=== PATIENT | female | born 1990 | race Caucasian/White ===

== ENCOUNTER 2016-11-05 11:54 | Emergency (ER) | payer BC, OTHER ==
[~2016-11-05] VITALS: Ht 170.2 cm; Wt 58.1 kg
[~2016-11-05 11:54] MED LIST: AUGM875T PO; IBUP800T23 PO
[2016-11-05 12:03] VITALS: BP 122/75; PULSE 83; RESP 16; TEMP 97.8; O2SAT 100
--- NOTE | 2016-11-05 12:31 | PD ---
HPI Chief Complaint: Injury Time Seen by Provider: 12:24 Travel History International Travel<30 days: No Contact w/Intl Traveler<30days: No Traveled to known affect area: No History of Present Illness HPI 26-year-old female presents to the emergency room from work for evaluation of left knee pain. Patient states she was feeding a 60 pound dog when the dog struck her left knee causing it to bend backwards. Patient states it felt as though her leg gave out. She reports immediate pain localized to the left lateral knee. Pain is worse with walking and bending the knee. She has been able to walk on it. She took 600 mg ibuprofen and applied Biofreeze with moderate relief in symptoms. Denies paresthesias. No chronic medical conditions or daily medications. PFSH Past Medical History Medical History: Denies Significant Hx Diminished Hearing: No Immunizations Current: Yes Migraines: Yes Tetanus Vaccination: < 5 Years Influenza Vaccination: No ?: Not LMP: "Last week" : 1 Para: 0 : 1 Past Surgical History Gynecologic Surgery: Yes (BREAST BX) Social History Alcohol Use: No Tobacco Use: No Substance Use: No Allergies-Medications (Allergen,Severity, Reaction): Coded Allergies: No Known Allergies (Verified , 11/05/16) Reported Meds & Prescriptions Reported Meds & Active Scripts Active No Active Prescriptions or Reported Medications Review of Systems Except as stated in HPI: all other systems reviewed are Neg Physical Exam Narrative GENERAL: Well-nourished, well-developed female in no acute distress. Afebrile. Ambulatory with a limp. SKIN: Warm and dry. No erythema or ecchymosis. HEAD: Normocephalic. EYES: No scleral icterus. No injection or drainage. NECK: Supple, trachea midline. No JVD or lymphadenopathy. CARDIOVASCULAR: Regular rate and rhythm without murmurs, gallops, or rubs. RESPIRATORY: Breath sounds equal bilaterally. No accessory muscle use. MUSCULOSKELETAL: No cyanosis, or edema. No bony tenderness to palpation of the fibular head or patella. Patient can bend knee 90. Negative anterior and posterior drawer test. No pain with valgus or varus stress. Data Data Last Documented VS Vital Signs Date Time Temp Pulse Resp B/P Pulse Ox O2 Delivery O2 Flow Rate FiO2 11/05/16 12:03 97.8 83 16 122/75 100 MDM Medical Decision Making Medical Screen Exam Complete: Yes Emergency Medical Condition: Yes Medical Record Reviewed: Yes Differential Diagnosis Knee strain versus sprain versus contusion versus fracture unlikely Narrative Course 26 red female presents to the emergency room for evaluation of left knee pain after hyperextending it at work earlier today. Patient has been ambulatory since injury. Physical exam reveals no erythema, ecchymosis, or edema. No bony tenderness to palpation. No pain with varus or valgus stress. Negative posterior and anterior drawer test. No concern for bony injury. [place] knee rule excludes need for imaging at this time. Patient will be treated conservatively with rest, ice, compression, and ibuprofen. She declined crutches at this time. She was told to follow up with a primary care physician if symptoms persist for outpatient MRI to evaluate for possible ligamentous injury. She understands and agrees to plan. Diagnosis Primary Impression: Left knee sprain Qualified Code: S83.92XA - Sprain of left knee, unspecified ligament, initial encounter Referrals: Primary Care Physician Patient Instructions: General Instructions, Knee Sprain (ED) Additional Instructions: Rest and drink plenty of fluids. Take ibuprofen with food as directed, as needed for pain. Apply ice to the affected area for 20 minutes at a time, as needed for pain and swelling. Follow-up with a primary care physician if symptoms persist for outpatient MRI. Return to the emergency room for worsening symptoms. Scripts No Active Prescriptions or Reported Meds Disposition: 01 DISCHARGE HOME Condition: Stable Salud Navarro November 05, 2016 12:31
== END 2016-11-05 12:40 | disposition home or self-care (01) ==
LOC: PHEFT 11:54
DX: S83.92XA Sprain of unspecified site of left knee, initial encounter (principal); W54.1XXA Struck by dog, initial encounter; Y93.K9 Activity, other involving animal care; Y92.9 Unspecified place or not applicable; Y99.8 Other external cause status
CPT/HCPCS: 99283